=== PATIENT | male | born 1975 | race Two or more races ===

== ENCOUNTER 2020-08-22 13:55 | Emergency (ER) | payer SELFPAY ==
[~2020-08-22] VITALS: Ht 175.3 cm; Wt 149.7 kg
[2020-08-22 16:33] VITALS: BP 122/92
== END 2020-08-22 17:15 | disposition home or self-care (01) ==
LOC: ER 13:55
DX: H10.33 Unspecified acute conjunctivitis, bilateral (principal); H11.33 Conjunctival hemorrhage, bilateral; E66.01 Morbid (severe) obesity due to excess calories; F17.210 Nicotine dependence, cigarettes, uncomplicated; Z68.42 Body mass index [BMI] 45.0-49.9, adult

== ENCOUNTER 2022-10-12 15:34 | Emergency (ER) | payer MEDICAID, OTHER ==
[~2022-10-12] VITALS: Ht 175.3 cm; Wt 136.2 kg
[2022-10-12] MEDS ORDERED: diphenhdrAMINE HCL 50 MG/1 ML VL IM ONE (16:15)
[2022-10-12] MEDS ORDERED: FAMOTIDINE 20 MG TAB PO ONE (16:15)
[2022-10-12] MEDS ORDERED: DexAMETHasone SOD PHOS 10MG/1ML VIAL INJ IM ONE (16:15)
[2022-10-12] MEDS ORDERED: FAMO20TA10 PO (17:25)
[2022-10-12] MEDS ORDERED: DOXY-346 PO (17:25)
[2022-10-12] MEDS ORDERED: PRED20TA2 PO (17:25)
[2022-10-12] MEDS ORDERED: DIPH25CA66 PO (17:25)
[2022-10-12 17:45] VITALS: BP 145/59; PULSE 106; RESP 15; TEMP 96.3; O2SAT 96
== END 2022-10-12 17:47 | disposition home or self-care (01) ==
LOC: ER 15:34
DX: T63.441A Toxic effect of venom of bees, accidental (unintentional), initial encounter (principal); E11.9 Type 2 diabetes mellitus without complications; F17.210 Nicotine dependence, cigarettes, uncomplicated; Z79.2 Long term (current) use of antibiotics; Z79.899 Other long term (current) drug therapy; Y92.89 Other specified places as the place of occurrence of the external cause
CPT/HCPCS: 96372; 99284; J1100; J1200